=== PATIENT | male | born 1955 | race Caucasian/White ===

== ENCOUNTER 2018-07-17 05:33 | Day surgery (SDC) | payer OTHER ==
[~2018-07-17] VITALS: Ht 180.3 cm; Wt 81.6 kg
[~2018-07-17 05:33] MED LIST: ASPIR 8181 MG PO; CENTRUM SILVER1 EAC2 PO; CLARITIN10 MG PO; FISH OIL 1,001000 M2 PO; VITAMIN C500 M2 PO; VITAMIN D5000 UNI1 PO
[2018-07-17] MEDS ORDERED: NORCO 5-325 TA1 EACH PO (11:18)
[2018-07-17 12:35] VITALS: BP 115/70
[2018-07-17 14:52] VITALS: BP 115/70
--- NOTE | 2018-07-17 14:52 | O ---
[facility] [place] [address] OPERATIVE REPORT Name: JESSE DELA CRUZ Sanam Room #: 150-7 [facility]..#: [id number] Admission: 07/17/18 Attend Phys: Dewayne Moran MD Discharge: Date of : 57 Report #: [id number] THIS REPORT FOR: //name// CC: Carlos Moran DATE OF SERVICE: 07/17/[address] Dewayne Moran, Dr. Carlos Rodriguez. PREOPERATIVE DIAGNOSIS: Right inguinal hernia. POSTOPERATIVE DIAGNOSES: Right inguinal hernia with a right cord lipoma. PROCEDURE: Right inguinal hernia repair with Prolene hernia system mesh and excision of right cord lipoma. SURGEON: Dewayne Moran MD. ANESTHESIA: Local IV sedation. DESCRIPTION OF PROCEDURE: The patient was brought to the operating room and placed on the operative table in the supine position. Sequential compression devices were in place for DVT prophylaxis. He was given an appropriate preoperative dose of Ancef 2 grams prior to the incision due to some cystic acne and the skin of his abdominal wall as well as previous history of an MSSA infection with previous surgery. The right inguinal area was then prepped and draped in a sterile fashion. Skin and subcutaneous tissue were then infiltrated with 0.5% Marcaine and 1% Xylocaine in a 1:1 mixture. Right inguinal skin incision was then performed using #10 scalpel blade. Hemostasis obtained using electrocautery. Dissection was carried down through subcutaneous tissue and the Molly's fascia using the electrocautery. Further hemostasis was obtained with clamps and 2-0 chromic ties and the electrocautery. External oblique fascia was then identified and incised with a knife and opened with the Metzenbaum scissors. The ilioinguinal nerve was identified and dissected free. There were some small branches extending away from the main branch that were lysed with the Metzenbaum scissors. The cord was then elevated and held in place with Berkley drain. Cremasteric muscle fibers were then split in the direction of their fibers using clamp and electrocautery. A cord lipoma was identified, dissected free, excised and sent as specimen to pathology. A large indirect inguinal hernia sac was identified, dissected free. The direct inguinal hernia sac was then incised just above the level of the floor and reduced back through the floor into the preperitoneal space. An extended Prolene hernia system mesh was then inserted through the floor and the underlay patch was then deployed in the preperitoneal space. The connector was left in the floor and the floor was then [address] [address] OPERATIVE REPORT Name: JESSE DELA CRUZ Sanam Room #: 150-7 [facility]..#: [id number] Admission: 07/17/18 Attend Phys: Dewayne Moran MD Discharge: Date of : 57 Report #: [id number] tightened around the connector using running 2-0 Prolene two layer shouldice repair. The overlay patch was then deployed in the inguinal canal and secured the pubic tubercle with the same running 2-0 Prolene suture. The mesh was then secured superiorly at the connector using simple interrupted 2-0 Vicryl sutures. The mesh was split, wrapped around the cord, secured to the inguinal ligament with simple interrupted 2-0 Vicryl suture. The cord and ilioinguinal nerve then were turned to the canal intact. The external oblique fascia was then closed using running 2-0 Vicryl suture. Molly's fascia was then reapproximated using 3 simple interrupted 2-0 chromic sutures. The skin then closed with a running 4-0 subcuticular Vicryl stitch. Wound was then dressed with Mastisol, 1/2-inch Steri-Strips cut in half, Telfa, 4 x 4 gauze, sponge and tape. The patient was then taken to the recovery room awake, alert and in good condition. Estimated blood loss was approximately 5 mL and the patient tolerated procedure well. All sponge, lap and instrument counts correct x 2. <ELECTRONICALLY SIGNED> By: Dewayne Moran MD 07/17/18 1452 [id number] [id number] Dewayne Moran MD /nt
--- NOTE | 2018-07-19 15:08 | PATH ---
[facility] [address] [place] [address] PATHOLOGY RPT PROCEDURE Name: JULIO DELA CRUZ Room #: DEP [facility]..#: [id number] Admission: 07/17/18 Date of : 57 Discharge: 07/17/18 Report #: [id number] Path Case #: [id number] [facility] Accession Number: [id number] . 01 Material submitted: . CORD LIPOMA . 01 Clinical history: . right inguinal hernia . 02 Diagnosis: Mature adipose tissue, cord lipoma, excision: - Compatible with a lipoma. . (IUV:at;07/18/2018) QTA/07/18/2018 . 02 Electronically signed: . Akilah Gonzalez MD, Pathologist NPI- [id number] . 01 Gross description: . The specimen is received in formalin, labeled "Julio Dela Cruz, cord lipoma", are two irregular fragments, the largest yellow lobulated adipose tissue measuring 2.4 x 1.0 x 0.7 cm and the other chavez-pink with attached adipose tissue measuring 0.8 x 0.4 x 0.4 cm. Both the fragments are bisected and entirely submitted in A1. (SWS; 07/17/2018) SHS/SHS . 02 Pathologist provided ICD-10: D17.6 . 02 CPT . 319305 Specimen Comment: A courtesy copy of this report has been sent to Specimen Comment: [phone], . Specimen Comment: Report sent to / DR SOMMER Specimen Comment: A duplicate report has been generated due to demographic updates. Performed at: [address] [id number] MD Christian Tapia MD Phone: [phone] Performed at: [address] [id number] [address] [address] PATHOLOGY RPT PROCEDURE Name: JULIO DELA CRUZ Room #: DEP [facility] Honorio#: [id number] Admission: 07/17/18 Date of : 57 Discharge: 07/17/18 Report #: [id number] Path Case #: [id number] MD Akilah Gonzalez MD Phone: [phone]
== END 2018-07-17 15:22 | disposition home or self-care (01) ==
LOC: TBA 05:33 → OR 05:33
DX: K40.90 Unilateral inguinal hernia, without obstruction or gangrene, not specified as recurrent (principal); D17.6 Benign lipomatous neoplasm of spermatic cord; F17.210 Nicotine dependence, cigarettes, uncomplicated; Z98.890 Other specified postprocedural states; Z79.82 Long term (current) use of aspirin; Z79.899 Other long term (current) drug therapy
CPT/HCPCS: 50010; 50101; 50386; 50417; 54111; 56524; 56525; 56526; 56528; 62110; 62900; 70005